=== PATIENT | female | born 1985 | race Caucasian/White ===

== ENCOUNTER 2018-04-02 09:25 | Outpatient (CLI) | payer BC | END 2018-04-02 09:26 | disposition home or self-care (01) | LOC: CTENTCT 09:25 | PROVIDERS: ATTEND Specialist | DX: J32.9 Chronic sinusitis, unspecified (principal) | CPT/HCPCS: 70486 ==

== ENCOUNTER 2018-12-03 09:46 | Outpatient (CLI) | payer BC ==
--- NOTE | 2018-12-03 12:05 | CT ---
CT ABDOMEN AND PELVIS WITHOUT IV CONTRAST: Date: 12/03/18 Multiple axial tomograms obtained through abdomen and pelvis without IV enhancement. Oral contrast wa s not given. INDICATION: Perineal pain. Pelvic pain. Abdominal pain. Urinary incontinence. FINDINGS: Lung bases clear. Liver, spleen, and pancreas are unremarkable given the limitations of an unenhanced study. Adrenal glands appear unremarkable. Kidneys are unremarkable. There is no evidence of hydronephrosis. No evidence of urinary tract calculus. Urinary bladder is mildly distended and appears unremarkable. Images of bowel loops are limited due to lack of enteric contrast and lack of intra-abdominal fat. Th e small bowel loops appear normal caliber. There is stool throughout the colon. Appendix is identifie d and appears unremarkable. Images through the pelvis show unremarkable uterus. There is a cyst in the right adnexa measuring 2.2 -2.5 cm. This appears adjacent to the right ovary and may be exophytic from the ovaria. Correlation w ith serum HCG is recommended to exclude ectopic. Small amount of free fluid in cul-de-sac. IMPRESSION: Right adnexal cystic mass. Small amount of free fluid in the deep pelvis. Correlate with serum HCG le daniel to exclude ectopic. This lesion could be followed with pelvic ultrasound. POS: [facility]
== END 2018-12-03 09:47 | disposition home or self-care (01) ==
LOC: SCSCT 09:46
PROVIDERS: ATTEND Physician Assistant
DX: R10.2 Pelvic and perineal pain (principal); N83.8 Other noninflammatory disorders of ovary, fallopian tube and broad ligament
CPT/HCPCS: 74176; 84702

== ENCOUNTER 2019-02-06 10:09 | Outpatient (CLI) | payer BC ==
--- NOTE | 2019-02-06 11:01 | ULT ---
Exam: Pelvic ultrasound HISTORY: Pelvic pain COMPARISON: None TECHNIQUE: Multiple grayscale and color Doppler images were obtained in a transabdominal and transvag inal pelvic ultrasound. Spectral analysis of the Doppler waveforms of the ovaries were performed. FINDINGS: CERVIX: Not well visualized. UTERUS: Normal in size without focal abnormality. ENDOMETRIAL STRIPE: 15 mm which is mildly increased. No fluid or fluid collection is seen in the endo metrial canal. Mild free fluid is present. RIGHT OVARY: Normal flow, without focal mass. LEFT OVARY: Normal flow, without focal mass. IMPRESSION: 1. Mild thickening of the endometrium. This could be related to the stage of the patient's menstrual cycle. There is no fluid or fluid collection seen in the endometrial canal. 2. Small amount of free fluid in the pelvis. 3. Normal appearing bilateral ovaries with arterial flow documented in each ovary.
== END 2019-02-06 10:10 | disposition home or self-care (01) ==
LOC: SCSULT 10:09
PROVIDERS: ATTEND Family Medicine
DX: R10.2 Pelvic and perineal pain (principal); R93.89 Abnormal findings on diagnostic imaging of other specified body structures
CPT/HCPCS: 36415; 76856; 82627; 83001; 83002; 84144; 84270; 84403; 84439; 84443; 84480; 84481; 84482; 84702; 85025; 86376; 86800

== ENCOUNTER 2019-03-31 07:32 | Outpatient (CLI) | payer BC ==
[2019-03-31] MEDS ORDERED: Iopamidol 370 76% 100 ML VIAL ONE (09:00)
[2019-03-31 09:41] LABS: Pregnancy Test - Urine (BHCG) Negative (Negative); Pregu Control Background? CLEAR/WHITE (CLR/WHITE); Pregu Control Bar Appear? YES (CONTROL BAR); Specific Gravity 1.032 (1.002-1.036)
--- NOTE | 2019-03-31 12:43 | CT ---
CT PELVIS WITH CONTRAST: HISTORY: Left lower quadrant pain x6 months. CORRELATION: Pelvic ultrasound from 02/06/2019. COMPARISON: [facility] CT from 12/03/2018. FINDINGS: The visualized retroperitoneal structures are unremarkable. The visualized alimentary canal has an o verall normal caliber. Scattered fecal material is noted. The urinary bladder is unremarkable. The uterus and left adnexa are unremarkable. Peripherally enha ncing hypodense lesion in the right hemipelvis, likely representing a 1.8 x 1.5 cm right ovarian cyst . There is a small amount of free fluid in the pelvis, which may be physiologic. The ileocecal junction is unremarkable. There does appear to be nonspecific mucosal and bowel wall t hickening involving the cecal apex. An appendix is difficult to appreciate. The ileocecal junction is unremarkable. IMPRESSION: 1. Nonspecific mucosal and bowel wall thickening involving the cecal apex. 2. Right ovarian follicle. POS: OFF
== END 2019-03-31 07:33 | disposition home or self-care (01) ==
LOC: SCSCT 07:32
PROVIDERS: ATTEND Internal Medicine Gastroenterology
DX: R10.32 Left lower quadrant pain (principal); R14.0 Abdominal distension (gaseous); K90.49 Malabsorption due to intolerance, not elsewhere classified; K63.89 Other specified diseases of intestine
CPT/HCPCS: 72193; 81025; Q9967

== ENCOUNTER 2020-01-05 10:42 | Outpatient (CLI) | payer BC ==
--- NOTE | 2020-01-05 15:50 | MRI ---
MRI OF THE PELVIS WITHOUT AND WITH CONTRAST: HISTORY: Cyst of the ovary. Left lower quadrant abdominal pain. Endometriosis. COMPARISON: CT pelvis 03/31/2019 and ultrasound pelvis 02/06/2019. TECHNIQUE: Multiplanar, multisequence MRI images were obtained in an MRI of the pelvis without and with IV contr ast. FINDINGS: The uterus is normal in size and appearance without focal abnormality. The junctional zone of the ut erus is normal in thickness. Both ovaries are normal in size and appearance with normal-appearing follicles. The largest follicle is seen on the right measuring 1.4 cm in size. There is a small amount of free fluid in the pelvis which is likely physiologic. No suspicious masses are seen in the pelvis or either ovary. No pelvic adenopathy is seen. No marrow signal abnormality is present. IMPRESSION: No significant pelvic abnormality. POS: [facility]
[2020-01-06 10:19] LABS: Preg POC-QC Acceptable Acceptable (Acceptable); Pregnancy Test-BHCG Urine POC NEGATIVE (NEGATIVE)
== END 2020-01-05 10:43 | disposition home or self-care (01) ==
LOC: SCSMRI 10:42
PROVIDERS: ATTEND Obstetrics & Gynecology Obstetrics
DX: N80.9 Endometriosis, unspecified (principal); N83.209 Unspecified ovarian cyst, unspecified side
CPT/HCPCS: 72197; 81025

== ENCOUNTER 2023-09-03 07:43 | Outpatient (CLI) | payer BC | END 2023-09-03 07:44 | disposition home or self-care (01) | LOC: SCSMRI 07:43 | PROVIDERS: ATTEND Obstetrics & Gynecology Obstetrics | DX: N94.89 Other specified conditions associated with female genital organs and menstrual cycle (principal); N80.9 Endometriosis, unspecified; R10.2 Pelvic and perineal pain | CPT/HCPCS: 72197 ==